=== PATIENT | female | born 1935 | race Caucasian/White ===

== ENCOUNTER → 2016-11-05 | Outpatient (CLI) | payer OTHER ==
--- NOTE | 2016-11-05 14:57 | DIAGNOSTIC IMAGING REPORT ---
PROCEDURE: US BILATERAL CAROTID DOPPLER INDICATION: NUMBNESS IN LEFT ARM TECHNIQUE: Color Doppler duplex imaging of the carotid and vertebral vessels. COMPARISON: None. FINDINGS: Mild to moderate plaque in both bifurcations and the left vertebral artery. Right carotid system: No significant stenosis visualized. The waveforms are normal. Left carotid system: No significant stenosis visualized. The waveforms are normal. Vertebral System: Antegrade vertebral artery flow bilaterally. Right common carotid artery peak systolic velocity 119.2 cm/second. Right internal carotid artery peak systolic velocity 119.1 cm/second. Right external carotid artery peak systolic velocity 118.1 cm/second. Right rwqofozb-sq-rhpsvh carotid artery ratio 1.3 Right vertebral artery peak systolic velocity 63.7 cm/second. Left common carotid artery peak systolic velocity 109.5 cm/second. Left internal carotid artery peak systolic velocity 128.5 cm/second. Left external carotid artery peak systolic velocity 109.5 cm/second. Left vbpmrmtq-pp-ptjmzi carotid artery ratio 1.4 Left vertebral artery peak systolic velocity 158.7 cm/second. Elevated secondary to moderate plaque in the left vertebral artery IMPRESSION: 1. No hemodynamically significant stenosis in either carotid system. 2. Antegrade vertebral artery flow bilaterally. Velocity criteria are extrapolated from diameter data as defined by the Society of [employer]ologists in Ultrasound Consensus Conference, Radiology 2003; 229; 340-346.
--- NOTE | 2016-11-05 14:57 | DIAGNOSTIC IMAGING REPORT ---
PROCEDURE: US BILATERAL CAROTID DOPPLER INDICATION: NUMBNESS IN LEFT ARM TECHNIQUE: Color Doppler duplex imaging of the carotid and vertebral vessels. COMPARISON: None. FINDINGS: Mild to moderate plaque in both bifurcations and the left vertebral artery. Right carotid system: No significant stenosis visualized. The waveforms are normal. Left carotid system: No significant stenosis visualized. The waveforms are normal. Vertebral System: Antegrade vertebral artery flow bilaterally. Right common carotid artery peak systolic velocity 119.2 cm/second. Right internal carotid artery peak systolic velocity 119.1 cm/second. Right external carotid artery peak systolic velocity 118.1 cm/second. Right fhzbcqlx-xl-koohtl carotid artery ratio 1.3 Right vertebral artery peak systolic velocity 63.7 cm/second. Left common carotid artery peak systolic velocity 109.5 cm/second. Left internal carotid artery peak systolic velocity 128.5 cm/second. Left external carotid artery peak systolic velocity 109.5 cm/second. Left lzwjkftb-xa-irprjo carotid artery ratio 1.4 Left vertebral artery peak systolic velocity 158.7 cm/second. Elevated secondary to moderate plaque in the left vertebral artery IMPRESSION: 1. No hemodynamically significant stenosis in either carotid system. 2. Antegrade vertebral artery flow bilaterally. Velocity criteria are extrapolated from diameter data as defined by the [employer] of [employer]iologists in Ultrasound Consensus Conference, Radiology 2003; 229; 340-346.
== END ==
LOC: US SRH 12:51
DX: R20.0 Anesthesia of skin (principal)